=== PATIENT | female | born 1975 | race Caucasian/White ===

== ENCOUNTER 2022-09-25 15:07 | Outpatient (CLI) | payer OTHER, SELFPAY ==
--- NOTE | 2022-09-25 15:20 | CRLHL7_ITS ---
For Patients: As a result of the Century Cures Act, medical imaging exams and procedure reports are released immediately into your electronic medical record. You may view this report before your referring provider. If you have questions, please contact your health care provider. BILATERAL SCREENING MAMMOGRAM WITH COMPUTER-AIDED DETECTION AND TOMOSYNTHESIS TECHNIQUE: CC and MLO views were obtained. These mammographic images have been obtained using full-field digital technique. These mammographic images were interpreted with the benefit of computer-aided detection. Breast Tomosynthesis was used in this interpretation. COMPARISON FILM: 09/10/21, 07/20/20, 07/13/19. FINDINGS: There are scattered areas of fibroglandular density IMPRESSION: There is no radiographic evidence for malignancy. ASSESSMENT: BI-RADS Category 1: Negative RECOMMENDATION: Routine screening mammogram in 1 year. A lay language report of this examination will be provided to the patient. Brian Adams M.D. Diagnostic Radiologist [email or web address] Transcribed: 2:02 pm DW/Dictated by: Brian Adams MD @ 09/26/2022 8:20:00 AM (Electronically Signed)
== END 2022-09-25 15:08 | disposition home or self-care (01) ==
PROVIDERS: PCP Family Medicine; Visit Provider Family Medicine
DX: Z12.31 Encounter for screening mammogram for malignant neoplasm of breast (principal)
CPT/HCPCS: 77063; 77067

== ENCOUNTER 2022-09-29 08:33 | Emergency (ER) | payer OTHER, SELFPAY ==
[2022-09-29] VITALS (11 sets, daily range): BP systolic 128–139; BP diastolic 76–95; PULSE 79–94; RESP 20; TEMP 36.6; O2SAT 90–100; BMI 25.1
--- NOTE | 2022-09-29 09:04 | CRLHL7_ITS ---
For Patients: As a result of the Century Cures Act, medical imaging exams and procedure reports are released immediately into your electronic medical record. You may view this report before your referring provider. If you have questions, please contact your health care provider. INDICATION: Chest pain with elevated D-dimer and tachycardia. COMPARISON: None TECHNIQUE: : CT examination of the chest was performed with the uneventful intravenous administration of 95 cc of Isovue 370 while thin axial sections were obtained from above the apices of the lungs to the lung bases. Please note that all CT scans at this facility use dose modulation, iterative reconstruction, and/or weight-based dosing when appropriate to reduce radiation dose to as low as reasonably achievable. FINDINGS: : HEART and MEDIASTINUM: The heart size is normal. There is no mediastinal or hilar adenopathy or mass. There is no pericardial effusion. PULMONARY ARTERIAL CIRCULATION: There is no visible intraluminal filling defect to suggest pulmonary embolus. LUNGS: The lungs show no focal consolidation or mass. The airways appear normal. PLEURAL SPACES: There is no pleural effusion, pneumothorax or pleural based mass. VISUALIZED UPPER ABDOMEN: The limited visualized upper abdominal structures appear normal. OSSEOUS STRUCTURES: Age-appropriate appearance. No acute fracture or destructive process. TUBES and LINES: None. IMPRESSION: No finding of acute pulmonary embolus. The lungs and pleural spaces appear normal. Thoracic aorta appears normal. Please note that all CT scans at this facility use dose modulation, iterative reconstruction, and/or weight-based dosing when appropriate to reduce radiation dose to as low as reasonably achievable. Dictated by Shan Reilly MD @ 09/29/2022 11:07:57 AM (Electronically Signed)
[2022-09-29] MEDS: 0.9 % SODIUM CHLORIDE 1000 ml 1,000 ML IV (09:23)
--- NOTE | 2022-09-29 09:31 | ED.CHESTPAIN ---
HPI - Chest Pain General Chief Complaint: Chest Pain Stated Complaint: High d-dimer, chest pain Time Seen by Provider: 09/29/22 08:49 History of Present Illness HPI narrative: 47-year-old woman presenting to the emergency department with concern of upper chest pressure, tightness. Has been experiencing months of exertional dyspnea which is in the process of being worked up. She notes an echocardiogram a few months ago which apparently was normal. More abrupt onset of this discomfort though started yesterday evening and was evaluated at [facility] in [place] for that. I have reviewed all the labs there everything was normal including a chest x-ray. Troponins were negative D-dimer she was contacted about later was elevated-nearly 800 where upper normal is 500. Her discomfort continues. She has not had any lower extremity swelling but generally feels a little bit achy. No fever. I note her heart rate to be elevated. Does not feel sense of palpitations. Was sent to this department understandably recommended for a chest CT. Related Data Home Medications Medication Instructions Recorded Confirmed Advair Diskus 09/29/22 Previous Rx's Medication Instructions Recorded tretinoin 0.025 % topical cream 1 applic topical .HS #45 grams 06/25/22 spironolactone 50 mg tablet 50 mg PO QDAY #30 tabs 08/05/22 Allergies Allergy/AdvReac Type Severity Reaction Status Date / Time No Known Drug Allergies Allergy Verified 09/29/22 08:46 Review of Systems Status of ROS Reports: 10 or more systems reviewed and unremarkable except as noted in History and below [facility] Medical History (Updated 10/14/22 @ 13:56 by Brian Villa MD) Acne Social History Smoking Status: Never smoker How often do you have a drink containing alcohol: 2-3 times a week AUDIT-C Alcohol total score: 3 Non-prescribed substance use: denies use Exam Narrative Exam Narrative: Pleasant. Maybe a little anxious. Here with her spouse. Breathing easily. Well perfused peripherally. Lower extremities are without edema. Cardiovascular is elevated rate to tachycardic. No murmur rub or gallop. No JVD. Not able to reproduce pain to palpation across the chest wall. Lungs I thought initially were clear though there is little bit of crepitus in the left upper chest. Const Vital Signs, click to edit/add: Vital Signs - 24 hr 09/29/22 08:42 Temperature 97.9 F Pulse Rate [Pulse Oximeter] 94 Respiratory Rate 20 Blood Pressure [Left Upper Arm] 134/95 H Pulse Oximetry 98 Oxygen Delivery Method Room Air Documenting provider has reviewed patient's vital signs: yes Course Vital Signs Vital signs: Initial Vital Signs Temperature 97.9 F 09/29/22 08:42 Temperature Source Temporal Artery Scan 09/29/22 08:42 Pulse Rate 94 09/29/22 08:42 Respiratory Rate 20 09/29/22 08:42 Blood Pressure 134/95 H 09/29/22 08:42 Blood Pressure Mean 108 09/29/22 08:42 Blood Pressure Position Supine 09/29/22 08:42 Pulse Oximetry 98 09/29/22 08:42 Oxygen Delivery Method 09/29/22 08:42 Vital Signs Temperature 97.9 F 09/29/22 08:42 Pulse Rate 94 09/29/22 08:42 Respiratory Rate 20 09/29/22 08:42 Blood Pressure 134/95 H 09/29/22 08:42 Pulse Oximetry 98 09/29/22 08:42 Oxygen Delivery Method 09/29/22 08:42 Temperature 97.9 F 09/29/22 08:42 Pulse Rate 83 09/29/22 11:32 Respiratory Rate 20 09/29/22 08:42 Blood Pressure 138/87 09/29/22 11:31 Pulse Oximetry 100 09/29/22 11:32 Oxygen Delivery Method 09/29/22 08:42 MDM - Chest Pain MDM Narrative Medical decision making narrative: Repeated d-dimer and michael troponin; resulted after CT scan completed: reassuring. Also received IV fluids in the setting of IV contrast. Unremarkable contrasted chest CT by my read and overread by radiology. Lab Data Labs: Lab Results 09/29/22 09/29/22 Range/Units 09:16 09:16 D-Dimer Quant (PE/DVT) 0.45 (0.00-0.50) ug/ml Troponin I < 0.01 L (0.01-0.04) ng/mL Discharge Plan Discharge Clinical Impression: Atypical chest pain, Exertional dyspnea Patient Disposition: Home w/ Parent or Adult Condition: Stable Additional Instructions: Stay hydrated. Please follow-up for that pulmonary function testing as planned. What we did here today at least looked reassuring. Return for increasing persistent chest pain, shortness of breath. Prescriptions: No Action Advair Diskus tretinoin 0.025 % cream 1 applic topical .HS Qty: 45 1RF spironolactone 50 mg tablet 50 mg PO QDAY Qty: 30 3RF Follow Up/Referrals: Risa Bee MD [Primary Care Provider] - Stand Alone Forms: [employer] Info Instructions
[2022-09-29 09:56] LABS: D Dimer Quantitative* 0.45 ug/ml (0.00-0.50)
[2022-09-29 10:27] LABS: Troponin I* < 0.01 ng/mL (0.01-0.04)
== END 2022-09-29 11:45 | disposition home or self-care (01) ==
PROVIDERS: Emergency Provider Family Medicine; PCP Family Medicine
DX: R07.89 Other chest pain (principal)
CPT/HCPCS: 36415; 71260; 84484; 85379; 99284; J7030; Q9967

== ENCOUNTER 2023-10-29 15:02 | Outpatient (CLI) | payer BC, SELFPAY ==
--- NOTE | 2023-10-29 15:20 | CRLHL7_ITS ---
For Patients: As a result of the Century Cures Act, medical imaging exams and procedure reports are released immediately into your electronic medical record. You may view this report before your referring provider. If you have questions, please contact your health care provider. BILATERAL SCREENING MAMMOGRAM WITH COMPUTER-AIDED DETECTION AND TOMOSYNTHESIS TECHNIQUE: CC and MLO views were obtained. These mammographic images have been obtained using full-field digital technique. These mammographic images were interpreted with the benefit of computer-aided detection. Breast Tomosynthesis was used in this interpretation. COMPARISON FILM: 09/25/22, 09/10/21, 07/20/20. FINDINGS: The breasts are heterogeneously dense, which may obscure small masses IMPRESSION: There is no radiographic evidence for malignancy. ASSESSMENT: BI-RADS Category 2: Benign RECOMMENDATION: Routine screening mammogram in 1 year. A lay language report of this examination will be provided to the patient. Brian Adams M.D. Diagnostic Radiologist [email or web address] SHIREEN/Dictated by: Brian Adams MD @ 11/05/2023 12:47:00 PM (Electronically Signed)
== END 2023-10-29 15:03 | disposition home or self-care (01) ==
LOC: MAMMO 15:04
PROVIDERS: PCP Family Medicine; Visit Provider Family Medicine
DX: Z12.31 Encounter for screening mammogram for malignant neoplasm of breast (principal); R92.2 Inconclusive mammogram
CPT/HCPCS: 77063; 77067

== ENCOUNTER 2024-11-03 15:32 | Outpatient (CLI) | payer BC, SELFPAY ==
--- NOTE | 2024-11-03 15:40 | CRLHL7_ITS ---
For Patients: As a result of the Century Cures Act, medical imaging exams and procedure reports are released immediately into your electronic medical record. You may view this report before your referring provider. If you have questions, please contact your health care provider. BILATERAL SCREENING MAMMOGRAM WITH COMPUTER-AIDED DETECTION AND TOMOSYNTHESIS TECHNIQUE: CC and MLO views were obtained. Extra LMLO 2D due to poor positioning. These mammographic images have been obtained using full-field digital technique. These mammographic images were interpreted with the benefit of computer-aided detection. Breast Tomosynthesis was used in this interpretation. COMPARISON FILM: 10/29/23, 09/25/22, 09/10/21. FINDINGS: There are scattered areas of fibroglandular density IMPRESSION: There is no radiographic evidence for malignancy. ASSESSMENT: BI-RADS Category 1: Negative RECOMMENDATION: Routine screening mammogram in 1 year. A lay language report of this examination will be provided to the patient. Brian Adams M.D. Diagnostic Radiologist [email or web address] ALISON/arpita / bM/Dictated by: Brian Adams MD @ 11/04/2024 10:26:00 AM (Electronically Signed)
== END 2024-11-03 15:33 | disposition home or self-care (01) ==
LOC: MAMMO 15:34
PROVIDERS: PCP Family Medicine; Visit Provider Family Medicine
DX: Z12.31 Encounter for screening mammogram for malignant neoplasm of breast (principal)
CPT/HCPCS: 77063; 77067